=== PATIENT | female | born 1995 | race Caucasian/White ===

== ENCOUNTER 2019-11-30 13:40 | Emergency (ER) | payer OTHER ==
[2019-11-30 13:54] VITALS: TEMP 97.8
[2019-11-30] MEDS ORDERED: ALPRAZolam 0.5 MG TAB PO STA (14:03)
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
[2019-11-30 16:14] VITALS: BP 117/85; PULSE 70; RESP 16
== END 2019-11-30 16:30 | disposition home or self-care (01) ==
LOC: EC 13:40 → EEVIPCON 13:40 → EC 16:30
DX: F32.9 Major depressive disorder, single episode, unspecified (principal); F41.9 Anxiety disorder, unspecified; E07.9 Disorder of thyroid, unspecified; Z91.011 Allergy to milk products; Z79.890 Hormone replacement therapy; Z79.899 Other long term (current) drug therapy; Z62.810 Personal history of physical and sexual abuse in childhood
CPT/HCPCS: 82075; 99285

== ENCOUNTER 2023-12-18 22:12 | Emergency (ER) | payer OTHER ==
[2023-12-18 22:20] VITALS: TEMP 98.3
[2023-12-18] MEDS: ACETAMINOPHEN TAB 500 MG TAB PO STA (23:24)
[2023-12-18] MEDS: hydrOXYzine HCL 10 MG TAB PO STA (23:26)
[2023-12-18] MEDS: hydrOXYzine HCL 25 MG TAB PO STA (23:28)
--- NOTE | 2023-12-19 00:21 | ED ---
General Adult HPI - General Chief complaint: Psychiatric Symptoms Stated complaint: Mental health Time Seen by Provider: 12/18/23 22:35 Source: patient, EMS, RN notes reviewed, old records reviewed Mode of arrival: EMS Limitations: no limitations - History of Present Illness Initial comments: Patient is a 28-year-old female presents emergency department for suicidal ideations. States that her fianc broke up with her. Since that time has been having worsening thoughts when to hurt herself. No history of attempts or recent attempts. States her plan is to fall asleep after taking medications and never waking up. States she did not attempt this. Denies any homicidal ideations, intents, plans. Denies any hallucinations. Presents for further evaluation at this time. Vital signs within acceptable limits. - Related Data Home Medications Medication Instructions Recorded Confirmed Cholecalciferol (Vitamin D3) 125 mcg PO DAILY 11/30/19 11/30/19 [Vitamin D3] Levothyroxine Sodium [Synthroid] 137 mcg PO DAILY 11/30/19 11/30/19 QUEtiapine [SEROquel] 50 mg PO HS 11/30/19 11/30/19 busPIRone HCL 10 mg PO Q12H 11/30/19 11/30/19 Allergies Allergy/AdvReac Type Severity Reaction Status Date / Time bupropion [From Wellbutrin] Allergy Unknown Verified 12/18/23 22:18 milk Allergy Unknown Verified 12/18/23 22:18 Review of Systems ROS Statement: Those systems with pertinent positive or pertinent negative responses have been documented in the HPI. Review of Systems: CONST: Denies fever EYES: Denies blurry vision ENT: Denies nasal congestion C/V: Denies Chest pain RESP: Denies shortness of breath GI: Denies abdominal pain : Denies dysuria SKIN: Denies rash. MSK: Denies joint pain. NEURO: Denies headache ROS Other: All systems not noted in ROS Statement are negative. Past Medical History Additional Past Medical History / Comment(s): throid issues History of Any Multi-Drug Resistant Organisms: None Reported Additional Past Surgical History / Comment(s): ganglion cyst on hand. Past Psychological History: Anxiety, PTSD Past Alcohol Use History: Occasional Past Drug Use History: None Reported General Exam - General Exam Comments Initial Comments: General: Patient is tearful. Appears upset. Cooperative. HEAD: Normal with no signs of head trauma. EYES: EOMI. ENT: Hearing grossly intact. RESPIRATORY: No respiratory distress. C/V: Regular rate and rhythm. ABD: Abdomen is nondistended. EXT: No obvious deformity. SKIN: No rashes or lesions observed on exposed skin. NEURO: Alert and oriented. X 4. Limitations: no limitations Course Vital Signs 12/18/23 22:14 Temperature 98.3 F Pulse Rate 106 H Respiratory 20 Rate Blood Pressure 127/79 O2 Sat by Pulse 99 Oximetry Medical Decision Making - Medical Decision Making Was pt. sent in by a medical professional or institution (, PA, COLORER, urgent care, hospital, or [place] [facility] facility...) When possible be specific @ -No Did you speak to anyone other than the patient for history (EMS, parent, family, police, friend...)? What history was obtained from this source @ -No Did you review nursing and triage notes (agree or disagree)? Why? @ -I reviewed and agree with nursing and triage notes Were old charts reviewed (outside hosp., previous admission, EMS record, old EKG, old radiological studies, urgent care reports/EKG's, [place] [facility] facility records)? Report findings @ -No old charts were reviewed Differential Diagnosis (chest pain, altered mental status, abdominal pain women, abdominal pain men, vaginal bleeding, weakness, fever, dyspnea, syncope, headache, dizziness, GI bleed, back pain, seizure, CVA, palpatations, mental health, musculoskeletal)? @ -Differential Mental Health Depression, anxiety, bipolar, psychosis, schizophrenia, borderline personality, situational depression, adjustment disorder, behavioral disorder, brain tumor, malingering, substance abuse, encephalopathy, medication reaction, dementia, hypothyroidism, degenerative neurologic disorder, lupus.... This is not meant to be all-inclusive list EKG interpreted by me (3pts min.). @ -None done X-rays interpreted by me (1pt min.). @ -None done CT interpreted by me (1pt min.). @ -None done U/S interpreted by me (1pt. min.). @ -None done What testing was considered but not performed or refused? (CT, X-rays, U/S, labs)? Why? @ -None What meds were considered but not given or refused? Why? @ -None Did you discuss the management of the patient with other professionals (professionals i.e. , PA, COLORER, lab, RT, psych nurse, social studies teacher, director of payroll, teacher, police officer booking, gearcase assembler)? Give summary @ -EPS notified of the consult Was smoking cessation discussed for >3mins.? @ -No Was critical care preformed (if so, how long)? @ -No Were there social determinants of health that impacted care today? How? (Homelessness, low income, unemployed, alcoholism, drug addiction, transportation, low edu. Level, literacy, decrease access to med. care, penitentiary, rehab)? @ -No Was there de-escalation of care discussed even if they declined (Discuss DNR or withdrawal of care, Hospice)? DNR status @ -No What co-morbidities impacted this encounter? (DM, HTN, Smoking, COPD, CAD, Cancer, CVA, ARF, Chemo, Hep., AIDS, mental health diagnosis, sleep apnea, morbid obesity)? @ -None Was patient admitted / discharged? Hospital course, mention meds given and route, prescriptions, significant lab abnormalities, going to OR and other pertinent info. @ -Patient presents with suicidal ideations. Sitter ordered. Suicide precaution ordered. BAT is 0. UDS is pending. Vital signs within acceptable limits. She will be given a dose of Atarax at her request as well as Tylenol. Patient in agreement this plan. At this time, patient is medically cleared for evaluation by psychiatry. Disposition pending psychiatric evaluation. EPS notified of the consult. EPS evaluated the patient. They were able to safety plan the patient for discharge home. Patient be discharged home in good condition. Patient does not meet criteria for inpatient psychiatric admission. Undiagnosed new problem with uncertain prognosis? @ -No Drug Therapy requiring intensive monitoring for toxicity (Heparin, Nitro, Ins ulin, Cardizem)? @ -No Were any procedures done? @ -No Diagnosis/symptom? @ -Encounter for psychiatric evaluation Acute, or Chronic, or Acute on Chronic? @ -Acute Uncomplicated (without systemic symptoms) or Complicated (systemic symptoms)? @ -Uncomplicated Side effects of treatment? @ -None Exacerbation, Progression, or Severe Exacerbation] @ -No Poses a threat to life or bodily function? @ -Unlikely Disposition Clinical Impression: Encounter for psychiatric assessment Disposition: HOME SELF-CARE Condition: Good Additional Instructions: Follow safety plan. Is patient prescribed a controlled substance at d/c from ED?: No Referrals: Cody Gabriel DO [Primary Care Provider] - 1-2 days Time of Disposition: 00:29
[2023-12-19 00:49] VITALS: BP 114/87; PULSE 88; RESP 16
[2023-12-19] MEDS: hydrOXYzine HCL 10 MG TAB PO STA (00:58)
== END 2023-12-19 01:07 | disposition home or self-care (01) ==
LOC: EC 22:12
DX: Z00.8 Encounter for other general examination (principal); Z91.011 Allergy to milk products; Z88.8 Allergy status to other drugs, medicaments and biological substances
CPT/HCPCS: 82075; 99284